=== PATIENT | female | born 1985 | race Caucasian/White ===

== ENCOUNTER 2017-07-11 21:28 | Emergency (ER) | payer OTHER ==
[2017-07-11 21:34] VITALS: BP 111/67
[2017-07-11] MEDS ORDERED: PRENATAL MULTI1 EAC2 PO (21:55)
[2017-07-11] MEDS ORDERED: MUCINEX600 M1 PO (21:55)
[2017-07-11] MEDS ORDERED: BENADRYL25 MG PO (21:56)
[2017-07-11] MEDS ORDERED: ZYRTEC10 M3 PO (21:56)
--- NOTE | 2017-07-11 22:06 | ED GI/GU/ABDOMINAL COMPLAINT ---
History of Present Illness General Chief Complaint: Upper Respiratory Sx/Fever Stated Complaint: CONGESTED Source: patient Exam Limitations: no limitations Allergies Coded Allergies: amoxicillin (SOB/HIVES 07/11/17) hydrocodone (From VICODIN) (HIVES/DYSPNEA 07/11/17) sulfamethoxazole (From SEPTRA) (HIVES/DYSPNEA 07/11/17) trimethoprim (From SEPTRA) (HIVES/DYSPNEA 07/11/17) Reconcile Medications Cephalexin (Keflex) 500 MG CAPSULE 1 CAP PO TID PRN uti Cetirizine HCl (Zyrtec) 10 MG TABLET 1 TAB PO DAILY ALLERGIES (Reported) diphenhydrAMINE HCl (Benadryl) 25 MG CAP 1 CAP PO QPM SLEEP/CONGESTION ( Reported) Guaifenesin (Mucinex) (Unknown Strength) TAB.ER.12H (Unknown Dose) PO BID MUCUS (Reported) Pnv No.122/Iron/Folic Acid ( Multi Tablet) 27 MG IRON-800 MCG TABLET 1 TAB PO DAILY SUPPLEMENT (Reported) Triage Note: PER PT URI SYMPTOMS X 1 MONTH 25 WEEKS EDC 10/11 (TWINS) NO FEVER PRODUCTIVE SPUTUM GREENISH, PINK EYE X 2 WEEKS CP ON RT SIDE SINCE FRIDAY ASSOC WITH COUGHING Triage Nurses Notes Reviewed? yes LMP (ages 10-50): unknown ? n Is pt currently ? No Onset: Abrupt Duration: day(s): (1), constant, continues in ED, getting worse Timing: recent history Quality/Severity: sharpness, severe Severity Numbers: 8 Location: right flank, rt chest Radiation: no radiation Activities at Onset: none Prior Abdominal Problems: none Sexually Active: Yes No Modifying Factors: none Modifying Factors: Worsens With: breathing, palpation. HPI: 31-year-old female currently 25 weeks with twins presents for evaluation of cough, congestion, rhinorrhea, shortness of breath right-sided ribs/chest pain. Patient states symptoms have been ongoing for a month. She was treated with a Z-Calvin without any improvement. No fever. She does not smoke she has no history of underlying lung disease. She does report some shortness of breath. No lower extremity edema chest pain fever. The pain is much worse with deep inspiration and palpation. No trauma. She does report she has had nosebleeds and intermittent hemoptysis. No history of DVT or PE. No palpitations. No recent surgery recent trauma. No vaginal bleeding or abdominal pain. (Deven Peralta) Vital Signs & Intake/Output Vital Signs & Intake/Output Vital Signs Date Time Temp Pulse Resp B/P B/P Pulse O2 O2 Flow FiO2 Mean Ox Delivery Rate 07/11 2330 97 Room Air 07/11 2134 97.5 94 18 111/67 97 Room Air ED Intake and Output 07/12 0000 07/11 1200 Intake Total 0 Output Total Balance 0 Intake, Oral 0 (Katie DIOP,Perry Tai) Past History Travel History Traveled to [place] past 21 day No Medical History Any Pertinent Medical History? see below for history Neurological: NONE EENT: NONE Cardiovascular: NONE Respiratory: NONE Gastrointestinal: NONE Hepatic: NONE Renal: NONE Musculoskeletal: NONE Psychiatric: NONE Endocrine: NONE Surgical History Surgical History: non-contributory Psychosocial History What is your primary language Tajik Tobacco Use: Never used Family History Hx Contributory? No (Deven Peralta) Review of Systems Review of Systems Constitutional: Reports: no symptoms. EENTM: Reports: no symptoms, see HPI, nasal congestion. Respiratory: Reports: see HPI, cough, hemoptysis, short of breath, sputum production. Cardiovascular: Reports: see HPI, chest pain (rib pain ). GI: Reports: no symptoms. Genitourinary: Reports: no symptoms. Musculoskeletal: Reports: no symptoms. Skin: Reports: no symptoms. Neurological/Psychological: Reports: no symptoms. Hematologic/Endocrine: Reports: no symptoms. Immunologic/Allergic: Reports: no symptoms. All Other Systems: Reviewed and Negative (Deven Peralta) Physical Exam Physical Exam General Appearance: well developed/nourished, no apparent distress, alert, awake Head: atraumatic, normal appearance Eyes: Bilateral: normal appearance, PERRL, EOMI. Ears, Nose, Throat, Mouth: hearing grossly normal, dental injury, moist mucous membrane Neck: normal inspection, supple, full range of motion Respiratory: normal breath sounds, no respiratory distress, lungs clear, right lateral ribs right posterior ribs exquisitely tender to palpation. There is no bruising swelling or abrasions no rashes no crepitus Cardiovascular: regular rate/rhythm, normal peripheral pulses Peripheral Pulses: 2+ radial (R), 2+ radial (L) Gastrointestinal: normal bowel sounds, soft, non-tender, no organomegaly Back: normal inspection, normal range of motion, no vertebral tenderness Extremities: normal range of motion Neurologic/Psych: no motor/sensory deficits, awake, alert, oriented x 3, normal gait Skin: intact, normal color, warm/dry Core Measures ACS in differential dx? No Sepsis Present: No Sepsis Focused Exam Completed? No (Deven Peralta) Progress Differential Diagnosis: biliary colic, cholecystitis, gastritis, hepatitis, hernia, inflamm bowel dis, intrauterine , kidney stone, ovarian cyst, ovarian torsion, pancreatitis, SBO, threatened AB, UTI/pyelo, PE, pneumonia, acute bronchitis, rib fracture Initial ED EKG: none (Deven Peralta) Plan of Care: Orders Procedure Date/time Status URINALYSIS 07/12 2311 Complete LIPASE 07/12 2311 Complete COMPREHENSIVE METABOLIC PANEL 07/12 2311 Complete CBC WITHOUT DIFFERENTIAL 07/12 2311 Complete Laboratory Tests 07/11/17 2338: Urine Color YEL, Urine Clarity CLDY H, Urine pH 6.0, Ur Specific [place] 1.025, Urine Protein TRACE H, Urine Ketones NEG, Urine Nitrite NEG, Urine Bilirubin NEG, Urine Urobilinogen 0.2, Ur Leukocyte Esterase MOD H, Ur Microscopic SEDIMENT EXAMINED, Urine WBC 15-25 H, Ur Epithelial Cells MANY H, Urine Bacteria MANY H, Urine Hemoglobin NEG, Urine Glucose NEG 07/11/17 2330: Anion Gap 7, Estimated GFR > 60, BUN/Creatinine Ratio 22.0, Glucose 88, Calcium 9.2, Total Bilirubin 0.2, AST 20, ALT 37, Alkaline Phosphatase 96, Total Protein 5.6 L, Albumin 3.0 L, Globulin 2.6, Albumin/Globulin Ratio 1.2, Lipase 127, CBC w Diff NO MAN DIFF REQ, RBC 3.74 L, MCV 91.1, MCH 31.2 H, MCHC 34.3, RDW 14.0, MPV 8.8, Gran % 77.8 H, Lymphocytes % 15.5 L, Monocytes % 5.9, Eosinophils % 0.8, Basophils % 0, Absolute Granulocytes 10.9 H, Absolute Lymphocytes 2.2, Absolute Monocytes 0.8 H, Absolute Eosinophils 0.1, Absolute Basophils 0 Patient seen and evaluated. She is here with cough congestion and rhinorrhea right chest/rib pain. The skin is having ongoing for greater than a month and recently gotten worse. Considered the possibility of PE, pneumonia, kidney stone, pyelonephritis, hydronephrosis, cholecystitis. Patient appears clinically well. Her right-sided rib pain is very reproducible with palpation and deep inspiration. She has no DVT or PE risk factors. She is not tachycardic or hypoxic. Suspect this is more likely related to rib pain from coughing for the past month. We'll check basic labs urinalysis. Patient was also given requisitions for renal and abdominal ultrasounds. Blood work shows a white blood cell count of 14,000. Urine is also showing signs of infection however the specimen does appear contaminated. Patient has an allergy to amoxicillin but is unsure what it is. She has never had cephalosporins. She'll be covered with cephalexin. Vital signs remain stable. Requisitions given for ultrasound advised to return tomorrow to have these completed. Case was discussed with Dr. Wilson. Dr. Wilson examined the patient and agrees with the plan. Clinical suspicion for PE is low. Discussed with patient about the importance of close follow-up and monitoring. Follow up with SENIOR SALES OPERATIONS MANAGER as soon as possible. Discussed return precautions patient agrees the plan. (Deven Peralta) (Katie DIOP,Perry Tai) Departure Departure Disposition: STILL A PATIENT Condition: Stable Clinical Impression Primary Impression: Cough Secondary Impressions: UTI (urinary tract infection) Qualifiers: Urinary tract infection type: acute cystitis Hematuria presence: without hematuria Qualified Code: N30.00 - Acute cystitis without hematuria Referrals: Patient Has No Primary Care Dr (PCP/Family) Additional Instructions: Continue Tylenol 650 every 6 hours as needed for pain. Take antibiotics as directed for the full course. Complete outpatient ultrasound tomorrow. Follow up with SENIOR SALES OPERATIONS MANAGER as soon as possible. Monitor symptoms return with any concerns. Departure Forms: Customer Survey General Discharge Information Prescriptions: Current Visit Scripts Cephalexin (Keflex) 1 CAP PO TID PRN uti #30 CAP (Deven Peralta) PA/[employer] F[employer] DRA[employer]ER Co-Sign Statement Statement: ED Attending supervision documentation- [x] I saw and evaluated the patient. I have also reviewed all the pertinent lab results and diagnostic results. I agree with the findings and the plan of care as documented in the PA's/MOLD FILLER AND DRAINER's documentation. Patient presents for evaluation of a right lateral chest and flank pain that began one week ago. Patient recently was treated for bronchitis with azithromycin. Physical examination reveals tenderness over the right flank without associated rash. Lung examination is normal. Lower extremities are nontender without edema. Given the reproducibility of the patient's pain with palpation and the lack of lower extremity findings I doubt pulmonary embolism. [] I have reviewed the ED Record and agree with the PA's/MOLD FILLER AND DRAINER's documentation. [] Additions or exceptions (if any) to the PAs/MOLD FILLER AND DRAINER's note and plan are summarized below: [] (Katie DIOP,Perry Tai)
[2017-07-11 23:58] LABS: ABSOLUTE BASOPHIL COUNT 0 /CUMM (0.0-0.2); ABSOLUTE EOSINOPHIL COUNT 0.1 /CUMM (0.0-0.7); ABSOLUTE GRANULOCYTE CT 10.9 /CUMM (1.4-6.5); ABSOLUTE LYMPH COUNT 2.2 /CUMM (1.2-3.4); ABSOLUTE MONOCYTE COUNT 0.8 /CUMM (0.10-0.60); BASOPHIL % 0 % (0.0-2.0); EOSINOPHIL % 0.8 % (0-5); GRANULOCYTE % 77.8 % (42.2-75.2); HEMATOCRIT 34.1 % (37-47); MEAN CORPUSCULAR HGB 31.2 PG (27.0-31.0); MEAN CORPUSCULAR HGB CONC 34.3 G/DL (33.0-37.0); MEAN CORPUSCULAR VOLUME 91.1 FL (81.0-99.0); MEAN PLATELET VOLUME 8.8 FL (7.4-10.4); PLATELET COUNT 228 /CUMM (130-400); RED BLOOD CELL CT 3.74 /CUMM (4.20-5.40); WHITE BLOOD CELL COUNT 13.9 /CUMM (4.8-10.8)
[2017-07-12] MEDS ORDERED: KEFLEX500 M1 PO (00:16)
== END 2017-07-12 00:24 ==
LOC: ERH 21:28
PROVIDERS: Physician Assistant Medical
DX: O23.42 Unspecified infection of urinary tract in pregnancy, second trimester (principal); R05 Cough
CPT/HCPCS: 81001